=== PATIENT | male | born 1945 | race Caucasian/White ===

== ENCOUNTER 2017-10-30 16:53 | Emergency (ER) | payer OTHER ==
[~2017-10-30] VITALS: Ht 165.1 cm; Wt 71.2 kg
[2017-10-30 17:50] LABS: ALBUMIN 3.6 g/dL (3.4-5.0); ANION GAP 7 mmol/L (5-15); CALCIUM 8.7 mg/dL (8.5-10.1); CHLORIDE 107 mmol/L (98-107)
[2017-10-30 17:55] LABS: ALANINE AMINOTRANSFERASE 79 U/L (12-78); ALKALINE PHOSPHATASE 90 U/L (45-117); BILIRUBIN,TOTAL 1.3 mg/dL (0.2-1.0); CREATININE 0.91 mg/dL (0.7-1.3)
[2017-10-30 18:06] LABS: MEAN CORPUSCULAR HEMOGLOBIN 30.8 pg (27.5-34.5); MEAN CORPUSCULAR HGB CONC 33.4 g/dL (33.2-36.2); MEAN CORPUSCULAR VOLUME 92.2 fL (81-97); MEAN PLATELET VOLUME 10.7 fL (7.4-10.4); PLATELET COUNT 122 x10^3/uL (130-400); RED BLOOD COUNT 4.28 x10^6/uL (4.38-5.82); RED CELL DISTRIBUTION WIDTH 14.3 % (9.4-14.8)
[2017-10-30 18:10] LABS: BASOPHILS # (AUTO) 0.03 x10^3/uL (0-0.1); BASOPHILS % (AUTO) 0 % (0-1); EOSINOPHILS # (AUTO) 0.54 x10^3/uL (0-0.4); EOSINOPHILS % (AUTO) 6 % (1-7); LYMPHOCYTES # (AUTO) 1.13 x10^3/uL (1-3.4); LYMPHOCYTES % (AUTO) 13 % (22-44); MD SCAN; MONOCYTES # (AUTO) 0.63 x10^3/uL (0.2-0.8); MONOCYTES % (AUTO) 7 % (2-9); NEUTROPHILS # (AUTO) 6.56 x10^3/uL (1.8-6.8); NEUTROPHILS % (AUTO) 74 % (42-75)
[2017-10-30 18:20] LABS: MICROSCOPIC INDICATED
[2017-10-30] MEDS ORDERED: PRAM0.12 PO (18:29)
[2017-10-30] MEDS ORDERED: TORS20TA2 PO ×2 (18:29→18:38)
[2017-10-30] MEDS ORDERED: INSU100V8 SQ (18:38)
[2017-10-30] MEDS ORDERED: VENTOLIN HFA (18:38)
[2017-10-30] MEDS ORDERED: ATOR40TA PO (18:38)
[2017-10-30] MEDS ORDERED: DIGO125T PO (18:38)
[2017-10-30] MEDS ORDERED: INSU100C SQ-INSULIN (18:38)
[2017-10-30] MEDS ORDERED: BREO ELLIPTA (18:38)
[2017-10-30] MEDS ORDERED: CARV-39 PO (18:38)
[2017-10-30] MEDS ORDERED: METF500T5 PO (18:38)
[2017-10-30] MEDS ORDERED: SPIR25TA PO (18:38)
[2017-10-30] MEDS ORDERED: LISI-170 PO (18:38)
[2017-10-30 18:46] LABS: CULTURE INDICATED? YES
[2017-10-30 19:03] VITALS: BP 106/68
== END 2017-10-30 19:21 | disposition home or self-care (01) ==
LOC: ED 19:15
DX: E11.65 Type 2 diabetes mellitus with hyperglycemia (principal); G25.81 Restless legs syndrome; R03.0 Elevated blood-pressure reading, without diagnosis of hypertension; Z76.0 Encounter for issue of repeat prescription
CPT/HCPCS: 36415; 80053; 81001; 82962; 85025; 87086; 99284